=== PATIENT | female | born 1990 | race Caucasian/White ===

== ENCOUNTER 2018-12-06 16:58 | Inpatient (IN) | payer MEDICAID, OTHER ==
[~2018-12-06] VITALS: Wt 71.8 kg
--- NOTE | 2018-12-06 19:16 | EN ---
Date/Time of Note Date/Time of Note DATE: 12/06/18 TIME: 19:15 ER Progress Note 28-year-old female presents with progressively worsening left pelvic pain. Was diagnosed with a dermoid cyst at [facility] over the weekend and recommended surgical removal. Pain is getting progressively worse, not relieved by ibuprofen. No nausea, vomiting or any other symptoms. Medical screening initiated and labs and imaging tests ordered. Patient will be seen by another provider. SKYE NEFF PA-C Dec 06, 2018 19:16
[2018-12-06] MEDS ORDERED: KETOROLAC 15 MG INJ IV STA (19:51)
[2018-12-06] MEDS ORDERED: SOD CHLORIDE 0.9% 1,000 ML IV STA (19:51)
[2018-12-06] MEDS ORDERED: ONDANSETRON 4 MG INJ IV STA (19:51)
--- NOTE | 2018-12-06 20:38 | ERD ---
ER Documentation Chief Complaint Chief Complaint l. pelvic pain HPI This is a otherwise healthy 28-year-old woman complaining of 2 episodes of left sided pelvic pain, severe beginning about 3 days ago. Initially the pain lasted for most of the day and then resolved for a few days and then again began this morning and has been constant nonradiating nonexertional. Patient denies dysuria, no fevers or chills, no chest pain or shortness of breath, no vomiting or diarrhea. Patient denies . ROS All systems reviewed and are negative except as per history of present illness. PMhx/Soc Medical and Surgical Hx: pt denies Medical Hx, pt denies Surgical Hx Hx Alcohol Use: Yes (social) Hx Substance Use: No Hx Tobacco Use: No Smoking Status: Never smoker Physical Exam Vitals Vital Signs Date Temp Pulse Resp B/P (MAP) Pulse Ox O2 O2 Flow FiO2 Time Delivery Rate 12/06/18 99.6 72 20 120/60 98 17:03 (80) Physical Exam GENERAL: Well-developed, well-nourished, well-hydrated, moderate discomfort, afebrile CARDIAC: Regular rate and rhythm, no murmurs rubs or gallops LUNGS: Clear bilaterally no wheezing crackles or stridor ABDOMEN: Left pelvic pain to touch with voluntary guarding, no masses palpated, no rigidity, no Trotter sign, no McBurney's point tenderness SKIN: Warm and dry to touch, no abrasions, contusions, or hematomas, no lacerations, no ecchymosis, no target lesions, and without ulcers EXTREMITIES: No clubbing cyanosis or edema, calves are bilaterally symmetrical, no Homans sign, no popliteal cord sign. Distal pulses equal and bilateral PSYCH: Normal affect without agitation or irritability Result Diagram: 12/06/18192312/06/181923 Results 24 hrs Laboratory Tests Test 12/06/18 19:24 12/06/18 20:21 White Blood Count 12.9 10^3/ul Red Blood Count 3.93 10^6/ul Hemoglobin 13.3 g/dl Hematocrit 37.5 % Mean Corpuscular Volume 95.4 fl Mean Corpuscular Hemoglobin 33.8 pg Mean Corpuscular Hemoglobin Concent 35.5 g/dl Red Cell Distribution Width 13.0 % Platelet Count 345 10^3/UL Mean Platelet Volume 9.7 fl Immature Granulocytes % 0.400 % Neutrophils % 70.4 % Lymphocytes % 20.9 % Monocytes % 7.1 % Eosinophils % 0.8 % Basophils % 0.4 % Nucleated Red Blood Cells % 0.0 /100WBC Immature Granulocytes # 0.050 10^3/ul Neutrophils # 9.1 10^3/ul Lymphocytes # 2.7 10^3/ul Monocytes # 0.9 10^3/ul Eosinophils # 0.1 10^3/ul Basophils # 0.1 10^3/ul Nucleated Red Blood Cells # 0.0 10^3/ul Urine Color STRAW Urine Clarity CLEAR Urine pH 5.0 Urine Specific [place] 1.008 Urine Ketones NEGATIVE mg/dL Urine Nitrite NEGATIVE mg/dL Urine Bilirubin NEGATIVE mg/dL Urine Urobilinogen NEGATIVE mg/dL Urine Leukocyte Esterase TRACE John/ul Urine Microscopic RBC 0 /HPF Urine Microscopic WBC 1 /HPF Urine Hemoglobin NEGATIVE mg/dL Urine Glucose NEGATIVE mg/dL Urine Total Protein NEGATIVE mg/dl Sodium Level 139 mmol/L Potassium Level 4.2 mmol/L Chloride Level 105 mmol/L Carbon Dioxide Level 25 mmol/L Anion Gap 9 Blood Urea Nitrogen 16 mg/dl Creatinine 0.66 mg/dl Est Glomerular Filtrat Rate mL/min > 60 mL/min Glucose Level 98 mg/dl Calcium Level 9.7 mg/dl POC Beta HCG, Qualitative NEGATIVE Current Medications Medications Dose Sig/Sonal Start Time Status Last (Trade) Ordered Route PRN Stop Time Admin Dose Reason Admin Sodium 1,000 ml @ Q1H STAT 12/06/18 12/06/18 Chloride 1,000 mls/hr IV 19:51 20:11 12/06/18 20:50 Ondansetron 4 mg ONCE STAT 12/06/18 DC 12/06/18 HCl (Zofran IV 19:51 20:22 Inj) 12/06/18 19:53 Ketorolac 15 mg ONCE STAT 12/06/18 DC 12/06/18 Tromethamine IV 19:51 20:22 (Toradol) 12/06/18 19:53 Procedures/MDM IV line was established patient was placed on it training specialist rhythm strip revealed a sinus rhythm at about 80 bpm with upright P and T waves. Patient was afebrile test was negative. I administered 1 L normal saline IV, Zofran 4 mg IV, Toradol 15 mg IV for pain control. Pelvic ultrasound revealed a 5 x 4 x 5 cm left adnexal mass, heterogeneous, hyperechoic. Ovarian torsion could not be ruled out. I spoke to identification technician on-call regarding the patient's presentation and symptomatology she agreed to admit the patient and will also consult from the ER. CBC and electrolytes were unremarkable, urinalysis was negative for infection. Patient admitted to [facility] Diagnosis: Primary Impression: Adnexal mass Additional Impression: Pelvic pain Condition: KATIE Molina MD Dec 06, 2018 20:38
[2018-12-06 21:30] VITALS: BP 126/69; PULSE 86; RESP 18
--- NOTE | 2018-12-07 10:47 | HP ---
Date/Time of Note Date/Time of Note DATE: 12/07/18 TIME: 10:33 Assessment/Plan VTE Prophylaxis SCD applied (from Nsg): No SCD contraindicated: low risk/ambulating Pharmacological prophylaxis: NA/contraindicated Pharm contraindication: low risk/ambulating VTE Confirmed-Overlap Tx Rcvd Pt Rcvd Overlap Therapy: No Lines/Catheters IV Catheter Type (from Nrsg): Saline Lock Central line still needed: No Urinary Cath still in place: No Assessment/Plan Hospital Course 1. Lower abdominal pain Complex left adnexal mass, questionable for possible dermoid. Limited pelvic ultrasound to identify the ovary. Ovarian torsion cannot be ruled out. Patient symptoms significantly improved and resolved after she was admitted to the hospital. She denied any pain at the time of my visit. I discussed with the patient ultrasound finding. I recommended the patient to stay overnight for close monitoring and observation and serial abdominal examination. Possibility of intermittent ovarian torsion cannot be ruled out in the context of possible dermoid. Patient strongly desired to go home. She denied any symptom. I did school counselor the patient extensively regarding the possibility of ovarian torsion and risk of loss of ovary in case of prolonged torsion. She declined to stay overnight for observation and she desired to sign AMA. She verbalized understanding all above risks including risk of loss of the ovary as well as risk of decreased fertility. 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 She stated that she will contact her outsole cementer machine for an appointment to discuss about follow-up plan and treatment options including possible surgery. Result Diagram: 12/06/18192312/06/181923 Results 24hrs Laboratory Tests Test 12/06/18 19:24 12/06/18 20:21 12/06/18 20:30 White Blood Count 12.9 H Red Blood Count 3.93 L Hemoglobin 13.3 Hematocrit 37.5 Mean Corpuscular Volume 95.4 Mean Corpuscular Hemoglobin 33.8 H Mean Corpuscular Hemoglobin Concent 35.5 Red Cell Distribution Width 13.0 Platelet Count 345 Mean Platelet Volume 9.7 Immature Granulocytes % 0.400 Neutrophils % 70.4 Lymphocytes % 20.9 Monocytes % 7.1 Eosinophils % 0.8 Basophils % 0.4 Nucleated Red Blood Cells % 0.0 Immature Granulocytes # 0.050 H Neutrophils # 9.1 H Lymphocytes # 2.7 Monocytes # 0.9 Eosinophils # 0.1 Basophils # 0.1 Nucleated Red Blood Cells # 0.0 Urine Color STRAW Urine Clarity CLEAR Urine pH 5.0 Urine Specific [place] 1.008 Urine Ketones NEGATIVE Urine Nitrite NEGATIVE Urine Bilirubin NEGATIVE Urine Urobilinogen NEGATIVE Urine Leukocyte Esterase TRACE A Urine Microscopic RBC 0 Urine Microscopic WBC 1 Urine Hemoglobin NEGATIVE Urine Glucose NEGATIVE Urine Total Protein NEGATIVE Sodium Level 139 Potassium Level 4.2 Chloride Level 105 Carbon Dioxide Level 25 Anion Gap 9 Blood Urea Nitrogen 16 Creatinine 0.66 Est Glomerular Filtrat Rate mL/min > 60 Glucose Level 98 Calcium Level 9.7 POC Beta HCG, Qualitative NEGATIVE Prothrombin Time 12.8 Prothrombin Time Ratio 1.0 INR International Normalized Ratio 0.95 Activated Partial Thromboplast Time 24.5 HPI/ROS Admit Date/Time Admit Date/Time Dec 06, 2018 at 20:26 Hx of Present Illness 12/06/2018 28-year-old G1, P0 presented to the emergency room with complaint of lower abdominal pain intermittently for the past 3 days. Reports this is a second episode of severe abdominal pain since 3 days ago. Patient denies any nausea or vomiting. Denies any fever or chills. Patient received a dose of narcotic in the emergency room and symptoms resolved. Patient had a pelvic ultrasound that showed evidence of a complex hypoechoic mass in the left adnexa. Cannot rule out ovarian torsion. They could not visualize left ovary and transvaginal ultrasound. there is a concern of possible dermoid and ultrasound. Patient was admitted by emergency room physician to [facility] unit. I did the patient bedside. By the time of my I arrived patient denied any symptoms. Patient denies any nausea vomiting, reports her pain completely resolved. She requests to go home. Her vitals were stable at the time of exam. ROS Constitutional: no complaints, improved; No chills, No diaphoresis, No disoriented, No fatigue, No febrile, No nausea, No poor po, No weight change, No other Eyes: No no complaints, No pain, No discharge, No redness, No visual change, No other ENT: No no complaints, No bleeding, No pain, No congestion, No discharge, No dysphagia, No sore throat, No other Respiratory: No no complaints, No pain, No cough, No pleuritic pain, No shortness of breath, No sputum, No wheezing, No other Cardiovascular: No no complaints, No chest pain, No edema, No lightheadedness, No orthopenea, No palpitations, No paroxysmal nocturnal dyspnea, No other Gastrointestinal: No no complaints, No pain, No blood, No constipation, No decreased appetite, No diarrhea, No flatus, No nausea, No passing stool, No vomiting, No other Genitourinary: No no complaints, No bleeding, No dysuria, No discharge, No fla nk pain, No hematuria, No other Musculoskeletal: No no complaints, No back pain, No bone/joint pain, No neck pain, No restricted range of motion, No swelling, No other Skin: No no complaints, No bruising, No erythema, No laceration, No pruritis, No rash, No skin lesions, No other Neurologic: No no complaints, No confusion, No dizziness, No focal-weakness, No headache, No syncope, No seizure, No other Endocrine: No no complaints, No polyuria, No polydypsia, No dry skin, No temp intolerance, No weight change, No other Lymphatic: No no complaints, No adenopathy, No tender nodes, No lymphadema, No other Psychological: No no complaints, No nl mood/affect, No anxiety, No confusion, No depression, No suicidal, No other Immunologic: No no complaints, No immunodeficiency, No pruritis, No rhinitis, No urticaria, No other PMH/Family/Social Past Medical History Denies any medical problems in the past Past Surgical History She denies any surgery in the past Family History Significant Family History: no pertinent family hx Social History Alcohol Use: occasionally Smoking Status: Never smoker Drug Use: none Exam/Review of Systems Vital Signs Vitals Vital Signs Date Temp Pulse Resp B/P (MAP) Pulse Ox O2 O2 Flow FiO2 Time Delivery Rate 12/06/18 98.8 86 18 126/69 99 21:30 (88) 12/06/18 Room Air 21:13 Exam Constitutional: alert, oriented, well developed Psych: no complaints, nl mood/affect Head: normocephalic, atraumatic Eyes: nl conjunctiva, EOMI, nl lids ENMT: nl external ears & nose, nl lips & teeth, nl nasal mucosa & septum Neck: supple, non-tender Respiratory: clear to auscultation, normal air movement Cardiovascular: regular rate and rhythm, nl pulses Gastrointestinal: soft, nl liver, spleen, non-tender Genitourinary - Female: other (External genitalia within normal limits. Sterile speculum examination: Cervix normal with scant normal-appearing vaginal discharge. No abnormal vaginal cervical lesion. Bimanual examination: Negative cervical motion tenderness. No fullness in adnexa. No tenderness adnexa. Uterus nontender.) Additional Comments PROCEDURE: US Pelvis CLINICAL INDICATION: Left-sided pelvic pain. TECHNIQUE: Transabdominal and transvaginal sonographic evaluation of the pelvis was performed. COMPARISON: None. FINDINGS: Uterus is anteverted and measures 9.8 x 5.1 x 6 cm. Endometrium measures 18 mm in thickness. No uterine masses are seen. Right ovary measures 1.8 x 1.3 x 1.5 cm. Left ovary is only seen on transabdominal imaging and measures 2.1 x 1.5 x 1.4 cm. Vascular flow is seen in the ovaries. There is a 5 x 3.7 x 5.2 cm heterogeneous hyperechoic left adnexal mass without detectable internal vascular flow. There is a small amount of free pelvic fluid. IMPRESSION: 1. Heterogeneous hyperechoic left adnexal mass. Although a normal appearing left ovary is suggested on transabdominal imaging, however, since a normal left ovary cannot be confirmed on transvaginal imaging, left ovarian torsion is not entirely excluded. Differential consideration includes dermoid cyst. Recommend gynecologic consultation. MRI could be helpful for further evaluation if clinically warranted. 2. Thickened endometrium measuring 18 mm. 3. Unremarkable right ovary. 4. Small amount of free pelvic fluid. Findings were discussed with Dr. Michael by Dr. Trujillo at 07:10 p.m. on 12/06/2018. RPTAT:HAJM Araceli Trujillo, Physician Date Time AKIRA ROWAN MD Dec 07, 2018 10:44
== END 2018-12-06 23:05 | disposition left against medical advice (07) | DRG 392 ==
LOC: E/R 16:58 → PP2 20:26 → CANRESERV 21:05
PROVIDERS: ADMIT Obstetrics & Gynecology Obstetrics; ATTEND Obstetrics & Gynecology Obstetrics
DX: R19.09 Other intra-abdominal and pelvic swelling, mass and lump (principal)
CPT/HCPCS: 36415; 76830; 76856; 80048; 81001; 81025; 85025; 85610; 85730; 96374; 96375; J1885; J2405; J7030